=== PATIENT | female | born 1930 | race African-American/Black ===

== ENCOUNTER 2018-06-06 11:04 | Emergency (ER) | payer MEDICAID, MEDICARE ==
[~2018-06-06] VITALS: Ht 160 cm; Wt 59.0 kg
[~2018-06-06 11:04] MED LIST: ACET-2178 PO; BRIM.2 BOTHEYE; DOCU-150 PO; DONE10TA11 PO; LOSA50TA3 PO; METR250T PO; MULT-1146 PO; OMEP40CA34 PO; POLY17PO3 PO; PRED1DRO BOTHEYE
[2018-06-06] MEDS ORDERED: HALOPERIDOL 5MG TABLET PO ONE (12:45)
[2018-06-06 16:54] LABS: BASOPHILS % 0.4 % (0.0-2.0); EOSINOPHILS % 1.5 % (0.0-5.0); HEMOGLOBIN. 12.9 g/dL (12.0-16.0); LYMPHOCYTES % 44.2 % (20.0-50.0); MEAN CORPUSCULAR HEMOGLOBIN 30.7 pg (28.0-32.0); MEAN CORPUSCULAR VOLUME 93.1 fL (81.0-99.0); MEAN PLATELET VOLUME 7.1 fl (7.4-10.4); NEUTROPHILS % 47.9 % (40.0-76.0); PLATELET 234 x1000/uL (130-400); RED BLOOD CELL COUNT 4.19 mill/uL (4.2-5.4); RED CELL DISTRIBUTION WIDTH 14.6 % (11.6-14.6)
[2018-06-06 17:01] LABS: INR 1.1; PROTHROMBIN TIME 10.7 sec (9.1-11.1)
[2018-06-06 17:02] LABS: CHLORIDE 103 mEq/L (98-107)
[2018-06-06 21:43] VITALS: BP 128/69
== END 2018-06-06 21:44 ==
LOC: ER 11:17
DX: R11.10 Vomiting, unspecified (principal); R45.1 Restlessness and agitation; F03.90 Unspecified dementia, unspecified severity, without behavioral disturbance, psychotic disturbance, mood disturbance, and anxiety; I10 Essential (primary) hypertension; H40.9 Unspecified glaucoma; Z88.2 Allergy status to sulfonamides; Z79.899 Other long term (current) drug therapy
CPT/HCPCS: 36415; 80053; 83605; 83690; 84484; 85025; 85610; 99283; J1630

== ENCOUNTER 2018-12-23 17:34 | Inpatient (IN) | payer MEDICARE, OTHER ==
[~2018-12-23] VITALS: Ht 154.9 cm; Wt 44.9 kg
[~2018-12-23 17:34] MED LIST changes: -ACET-2178 PO; +TOPUD PO
[2018-12-23] MEDS ORDERED: MAGNESIUM/ALUMINUM HYDROXIDE/SIMETHICONE 30ML UDC PO STA (18:28)
[2018-12-23] MEDS ORDERED: FAMOTIDINE 20MG/2ML VIAL IV STA (18:28)
[2018-12-23] MEDS ORDERED: ONDANSETRON HCL 4MG/2ML INJ IV STA (18:28)
[2018-12-23] MEDS ORDERED: ACETAMINOPHEN 325MG TABLET PO ONE ×2 (18:30→23:00)
[2018-12-23] MEDS ORDERED: OLANZAPINE 10 MG/VIAL IM ONE (20:00)
[2018-12-23] MEDS ORDERED: STERILE WATER FOR INJECTION 10ML VIAL ONE (20:39)
[2018-12-23 22:05] LABS: BASOPHILS % 0.5 % (0.0-2.0); EOSINOPHILS % 0.4 % (0.0-5.0); HEMATOCRIT. 35.4 % (36.0-48.0); HEMOGLOBIN. 11.8 g/dL (12.0-16.0); LYMPHOCYTES % 17.2 % (20.0-50.0); MEAN CORPUSCULAR HEMOGLOBIN 30.6 pg (28.0-32.0); MEAN PLATELET VOLUME 8.4 fl (7.4-10.4); MONOCYTES % 6.9 % (2.0-8.0); PLATELET 196 x1000/uL (130-400); RED BLOOD CELL COUNT 3.85 mill/uL (4.2-5.4); RED CELL DISTRIBUTION WIDTH 14.9 % (11.6-14.6)
[2018-12-23 22:09] LABS: CHLORIDE 108 mEq/L (98-107)
[2018-12-23] MEDS ORDERED: MAGNESIUM/ALUMINUM HYDROXIDE/SIMETHICONE 30ML UDC PO ONE (23:00)
[2018-12-23] MEDS ORDERED: ONDANSETRON HCL 4MG/2ML INJ IV ONE (23:00)
[2018-12-23] MEDS ORDERED: FAMOTIDINE 20MG/2ML VIAL IV ONE (23:00)
[2018-12-23] MEDS ORDERED: IOHEXOL-300 100 ML BOTTLE ONE (23:05)
[2018-12-24] MEDS ORDERED: METRONIDAZOLE 500 MG PREMIX 100 ML IV ONE (00:30)
[2018-12-24] MEDS ORDERED: CEFTRIAXONE 1 G PREMIX 50 ML IV ONE (00:30)
[2018-12-24 01:06] LABS: CLARITY URINE TURBID (CLEAR); COLOR URINE YELLOW (YELLOW); KETONES URINE NEGATIVE (NEGATIVE); LEUKOCYTE ESTERASE URINE 3+ (NEGATIVE); NITRITE URINE NEGATIVE (NEGATIVE); OCCULT BLOOD URINE 1+ (NEGATIVE); PH URINE 5.5 (4.5-8.0); PROTEIN URINE TRACE (NEGATIVE); SPECIFIC GRAVITY URINE 1.023 (1.005-1.030)
[2018-12-24 03:35] VITALS: BP 161/94
[2018-12-24 03:50] VITALS: BP 161/94
[2018-12-24] MEDS ORDERED: THIA100T72 MT (04:26)
[2018-12-24] MEDS ORDERED: MELA3TAB MT (04:26)
[2018-12-24] MEDS ORDERED: FOLI-43 MT (04:26)
[2018-12-24] MEDS ORDERED: LORA0.5T2 MT (04:26)
[2018-12-24] MEDS ORDERED: TRAV2.5D EACHEYE (04:26)
[2018-12-24] MEDS ORDERED: ESCI5TAB12 MT (04:26)
[2018-12-24] MEDS ORDERED: ONDANSETRON HCL 4MG/2ML INJ IV PRN (05:15)
[2018-12-24] MEDS ORDERED: HYDROCODONE/ACETAMINOPHEN 5/325MG TABLET PO PRN (05:15)
[2018-12-24] MEDS: CLONIDINE 0.1MG TABLET PO PRN ×2 (05:30→12:05)
[2018-12-24] MEDS ORDERED: LEVOFLOXACIN 500MG PREMIX 100 ML IV SCH (06:00)
[2018-12-24] MEDS: DEXT 5%/0.45% NACL 1000ML 1,000 ML IV SCH ×2 (06:28→14:26)
[2018-12-24] MEDS ORDERED: LORAZEPAM 0.5MG TABLET PO PRN (07:45)
[2018-12-24 08:00] VITALS: BP 134/72
[2018-12-24] MEDS ORDERED: LEVOFLOXACIN 250MG PREMIX 50 ML IV SCH ×2 (08:00→11:00)
[2018-12-24 08:14] LABS: BASOPHILS % 0.5 % (0.0-2.0); EOSINOPHILS % 2.1 % (0.0-5.0); HEMATOCRIT. 33.5 % (36.0-48.0); HEMOGLOBIN. 11.2 g/dL (12.0-16.0); LYMPHOCYTES % 34.2 % (20.0-50.0); MEAN CORPUSCULAR HEMOGLOBIN 30.8 pg (28.0-32.0); MEAN CORPUSCULAR VOLUME 92.2 fL (81.0-99.0); MEAN PLATELET VOLUME 7.6 fl (7.4-10.4); MONOCYTES % 6.2 % (2.0-8.0); PLATELET 206 x1000/uL (130-400); RED BLOOD CELL COUNT 3.63 mill/uL (4.2-5.4); RED CELL DISTRIBUTION WIDTH 14.5 % (11.6-14.6)
[2018-12-24] MEDS: MULTIVITAMINS,THER W-MINERALS TABLET PO SCH (08:36)
[2018-12-24] MEDS: THIAMINE HCL 100MG TABLET PO SCH (08:36)
[2018-12-24] MEDS: FOLIC ACID 1MG TABLET PO SCH (08:36)
[2018-12-24 08:49] LABS: CHLORIDE 110 mEq/L (98-107)
[2018-12-24] MEDS ORDERED: LOSARTAN POTASSIUM 50 MG TABLET PO SCH (09:00)
[2018-12-24 12:00] VITALS: BP 159/91
[2018-12-24 14:20] LABS: T4 FREE 1.26 ng/dL (0.76-1.46)
[2018-12-24 14:37] LABS: FOLIC ACID (FOLATE) SERUM >20 ng/mL ng/mL (>5.38)
[2018-12-24 14:48] LABS: VITAMIN B12 SERUM 756 pg/mL (211-911)
[2018-12-24] MEDS ORDERED: LORAZEPAM 2MG/ML CPJ IV NR (15:30)
[2018-12-24 16:00] VITALS: BP 136/92
[2018-12-24] MEDS ORDERED: CEFTRIAXONE 500 MG in DEXTROSE 5% WATER 50 ML IV SCH (18:30)
[2018-12-24 20:00] VITALS: BP 145/80
[2018-12-24] MEDS: FAMOTIDINE 20MG/2ML VIAL IV SCH (21:17)
[2018-12-24] MEDS: CEFTRIAXONE 500 MG in DEXTROSE 5% WATER 50 ML IV SCH (21:17)
[2018-12-25] VITALS: BP 137/80
[2018-12-25 04:00] VITALS: BP 157/67
[2018-12-25] MEDS: DEXT 5%/0.45% NACL 1000ML 1,000 ML IV SCH ×3 (04:24→21:58)
[2018-12-25 08:00] VITALS: BP 174/85
[2018-12-25] MEDS: MULTIVITAMINS,THER W-MINERALS TABLET PO SCH (09:02)
[2018-12-25] MEDS: LOSARTAN POTASSIUM 50 MG TABLET PO SCH ×2 (09:02→21:57)
[2018-12-25] MEDS: FOLIC ACID 1MG TABLET PO SCH (09:02)
[2018-12-25] MEDS: THIAMINE HCL 100MG TABLET PO SCH (09:08)
[2018-12-25 12:00] VITALS: BP 179/86
[2018-12-25] MEDS: CLONIDINE 0.1MG TABLET PO PRN (13:12)
[2018-12-25 16:00] VITALS: BP 183/90
[2018-12-25 20:00] VITALS: BP_SYST 113; BP_SYST 157; BP_DIAS 111; BP_DIAS 83
[2018-12-25] MEDS: FAMOTIDINE 20MG/2ML VIAL IV SCH (21:57)
[2018-12-25] MEDS: CEFTRIAXONE 500 MG in DEXTROSE 5% WATER 50 ML IV SCH (21:58)
[2018-12-26] VITALS: BP 168/79
[2018-12-26] MEDS: CLONIDINE 0.1MG TABLET PO PRN (02:04)
[2018-12-26 04:00] VITALS: BP 138/93
[2018-12-26] MEDS: LOSARTAN POTASSIUM 50 MG TABLET PO SCH ×2 (09:59→21:06)
[2018-12-26] MEDS: MULTIVITAMINS,THER W-MINERALS TABLET PO SCH (09:59)
[2018-12-26] MEDS: DEXT 5%/0.45% NACL 1000ML 1,000 ML IV SCH (09:59)
[2018-12-26] MEDS: THIAMINE HCL 100MG TABLET PO SCH (09:59)
[2018-12-26] MEDS: FOLIC ACID 1MG TABLET PO SCH (09:59)
[2018-12-26 16:00] VITALS: BP 193/100
[2018-12-26 20:00] VITALS: BP 173/100
[2018-12-26] MEDS: CEFTRIAXONE 500 MG in DEXTROSE 5% WATER 50 ML IV SCH (21:06)
[2018-12-26] MEDS: FAMOTIDINE 20MG/2ML VIAL IV SCH (21:06)
[2018-12-27] VITALS: BP 145/82
[2018-12-27 04:00] VITALS: BP 175/95
[2018-12-27] MEDS: DEXT 5%/0.45% NACL 1000ML 1,000 ML IV SCH ×2 (05:22→12:38)
[2018-12-27 06:48] LABS: CHLORIDE 109 mEq/L (98-107)
[2018-12-27 06:51] LABS: BASOPHILS % 0.7 % (0.0-2.0); EOSINOPHILS % 2.8 % (0.0-5.0); HEMATOCRIT. 36.8 % (36.0-48.0); HEMOGLOBIN. 12.6 g/dL (12.0-16.0); LYMPHOCYTES % 37.8 % (20.0-50.0); MEAN CORPUSCULAR HEMOGLOBIN 31.3 pg (28.0-32.0); MEAN CORPUSCULAR VOLUME 91.4 fL (81.0-99.0); MEAN PLATELET VOLUME 7.9 fl (7.4-10.4); MONOCYTES % 6.9 % (2.0-8.0); NEUTROPHILS % 51.8 % (40.0-76.0); PLATELET 216 x1000/uL (130-400); RED BLOOD CELL COUNT 4.03 mill/uL (4.2-5.4); RED CELL DISTRIBUTION WIDTH 14.3 % (11.6-14.6)
[2018-12-27 08:00] VITALS: BP 164/94
[2018-12-27] MEDS: THIAMINE HCL 100MG TABLET PO SCH (09:36)
[2018-12-27] MEDS: FOLIC ACID 1MG TABLET PO SCH (09:36)
[2018-12-27] MEDS: LOSARTAN POTASSIUM 50 MG TABLET PO SCH (09:36)
[2018-12-27] MEDS: MULTIVITAMINS,THER W-MINERALS TABLET PO SCH (09:36)
[2018-12-27 12:00] VITALS: BP 164/88
[2018-12-27 13:53] VITALS: BP 160/88
[2018-12-27] MEDS: CLONIDINE 0.1MG TABLET PO PRN (14:40)
[2018-12-27 16:00] VITALS: BP 175/90
== END 2018-12-27 15:30 | DRG 391 ==
LOC: ER 17:34 → 6EST 12-24 01:07 → ENRESERV 12-24 02:14
PROVIDERS: ADMIT Internal Medicine; ATTEND Internal Medicine
DX: K52.9 Noninfective gastroenteritis and colitis, unspecified (principal); G92 Toxic encephalopathy; N39.0 Urinary tract infection, site not specified; E44.1 Mild protein-calorie malnutrition; I13.0 Hypertensive heart and chronic kidney disease with heart failure and stage 1 through stage 4 chronic kidney disease, or unspecified chronic kidney disease; Z68.1 Body mass index [BMI] 19.9 or less, adult; D64.9 Anemia, unspecified; E87.6 Hypokalemia; F03.90 Unspecified dementia, unspecified severity, without behavioral disturbance, psychotic disturbance, mood disturbance, and anxiety; H54.7 Unspecified visual loss; G40.909 Epilepsy, unspecified, not intractable, without status epilepticus; I50.9 Heart failure, unspecified; N18.9 Chronic kidney disease, unspecified; K57.30 Diverticulosis of large intestine without perforation or abscess without bleeding; B96.20 Unspecified Escherichia coli [E. coli] as the cause of diseases classified elsewhere; R26.9 Unspecified abnormalities of gait and mobility; Z86.73 Personal history of transient ischemic attack (TIA), and cerebral infarction without residual deficits; Z79.899 Other long term (current) drug therapy; Z88.2 Allergy status to sulfonamides; Z95.0 Presence of cardiac pacemaker
CPT/HCPCS: 36415; 71045; 74177; 80048; 81003; 82607; 82746; 83036; 84439; 84443; 84481; 84484; 87077; 87186; 93005; 93306; 96374; 97162; 97166; 99285; A4216; J0696; J1956; J2060; J2405; J3490; J7060; Q9967